=== PATIENT | female | born 1975 | race Caucasian/White ===

== ENCOUNTER 2022-06-01 15:44 | Inpatient (IN) | payer OTHER ==
[~2022-06-01] VITALS: Ht 162.6 cm; Wt 76.4 kg
[2022-06-01] MEDS ORDERED: iohexoL 350 mgI/mL, 100 ML INFUS..BTL IV ONE (16:36)
[2022-06-01 16:55] LABS: BASOPHILS % (AUTO) 0.4 % (0.0-2.0); EOSINOPHILS # (AUTO) 0.3 K/uL (0.0-0.4); EOSINOPHILS % (AUTO) 5.7 % (0.0-4.0); HEMATOCRIT 39.4 % (36-48); HEMOGLOBIN 13.6 g/dL (12.0-16.0); LYMPHOCYTES % (AUTO) 39.4 % (20.5-51.5); MEAN CORPUSCULAR HEMOGLOBIN 31 pg (27-31); MEAN CORPUSCULAR HGB CONC 34 % (32-36); MEAN CORPUSCULAR VOLUME 91 fL (79.0-98.0); MONOCYTES # (AUTO) 0.5 K/uL (0.0-1.0); MONOCYTES % (AUTO) 9.9 % (1.7-9.3); NEUTROPHILS # (AUTO) 2.3 K/uL (1.8-7.7); NEUTROPHILS % (AUTO) 44.6 % (40.0-70.0); PLATELET COUNT (AUTO) 224 K/uL (130-430); RED BLOOD CELL COUNT(AUTO) 4.33 MIL/uL (4.2-6.2); WHITE BLOOD COUNT (AUTO) 5.1 K/uL (4.8-10.8)
--- NOTE | 2022-06-01 17:00 | NUR ---
Patient to ER bed 3 to gown for evaluation. Side rails up. Report given to SIRISHA.
[2022-06-01 17:09] LABS: ANION GAP 7 (5-15); CALCIUM 8.9 mg/dL (8.4-11.0); CHLORIDE 105 mmol/L (98-107); CREATININE 0.98 mg/dL (0.55-1.30); GLUCOSE 100 mg/dL (70-99); UREA NITROGEN, BLOOD 17 mg/dL (8-21)
[2022-06-01 17:11] LABS: GFR AFRICAN AMERICAN 78 mL/min (>90)
[2022-06-01 17:18] LABS: ALANINE AMINOTRANSFERASE 22 U/L (12-78); ALBUMIN 3.9 g/dL (3.4-4.8); ASPARTATE AMINOTRANSFERASE 16 U/L (10-37); TOTAL BILIRUBIN 0.2 mg/dL (0.0-1.0)
[2022-06-01 17:25] VITALS: BP_SYST 129
--- NOTE | 2022-06-01 18:02 | NUR ---
RETURNED FROM CT. AMBULATORY
--- NOTE | 2022-06-01 19:10 | NUR ---
REPORT GIVEN TO VERNON ORTIZ. PT STATES FAMILY HISTORY OF TWIN BROTHER. STATES DAD OF CEREBRAL ANUERYSM AT AGE 31. MOM HAD BREAST CA. MULTIPLE FAMILY MEMBERS HAVE HTN.
--- NOTE | 2022-06-01 19:25 | NUR ---
RECEIVED IN BED AAO X4 , SPEECH CLEAR AND COHERENT, BP118/71. HR 78, RR18, TEMP 97.9, O2SAT 99% ON RA. PATIENT STABLE, WILL CONTINUE TO MONITOR
--- NOTE | 2022-06-01 19:28 | NUR ---
ER at bedside examining patient.
[2022-06-01] MEDS ORDERED: ASPIRIN 81 MG TABLET(ECOTRIN) PO ONE (20:15)
--- NOTE | 2022-06-01 20:45 | NUR ---
Admit bed requested Patient will be admitted to care of . Admitted to TELE unit. Diagnosis R/O CVA Inpatient (Yes or No) YES Observation (Yes or No) YES Orientation concerns or request close to nursing station (Yes or No) Covid Status On vent or bipap Isolation requirements Needs a sitter From Home Yes Requires Dialysis No Med Rec Completed Yes
--- NOTE | 2022-06-01 22:28 | NUR ---
ADMISSION NOTE Received patient from ER via gurney. Patient admitted with diagnosis of R/O CVA. Patient is awake, alert, oriented X 4. Patient oriented to hospital room, call light, toileting, pain management and safety-teach back done. Patient informed that their room number is 128b. Personal belongings checked and Belongings List documented. Call light within reach.
[2022-06-01 22:29] VITALS: BP_SYST 116
[2022-06-01 22:30] VITALS: BP_SYST 116
--- NOTE | 2022-06-01 22:30 | NUR ---
ADMISSION NOTE Received patient from ER via gurney. Patient admitted with diagnosis of r/o CVA. Patient is awake, alert, oriented X 4. Patient oriented to hospital room, call light, toileting, pain management and safety-teach back done. Patient informed that I (Sujata) will be her nurse and that their room number is 128-B. Personal belongings checked and Belongings List documented. Call light within reach. -Pt is a/ox4. Pt denies any chest pain,pain,sob,or any acute distress. IV site of RAC saline thony patent, no ss/ any infiltration noted. Pt doesn't have any deficit. Speech is clear, no facial drooping noted. Pt denies any tingling or numbness this time. Pt passed swallow evaluation w/o any difficulty. Pt is able to ambulate to bathroom with steady gaits w/o any difficulty. Discussed poc, all safety measures, or if experiencing chest pain,numbness, or tingling or any acute distress to use call light for assistance, pt verbalized understanding. Call light w/in reach. Pt refused wilman SCD and Lipitor after explained risks and benefits, pt verbalized that she can walk fine and no problem with her cholesterol. Cont to monitor pt.
--- NOTE | 2022-06-01 22:36 | NUR ---
PATIENT ADMITTED TO [id number], PATIENT STABLE
--- NOTE | 2022-06-02 00:27 | NUR ---
CONSULTATION PAGED/CALLED Reason for Consultation: R/O CVA Person Who was Notified: DR BAEZ VIA TEXT Consulting Physician: DR BAEZ Ore Fielder Specialty: Ordering Physician: CECILLE
--- NOTE | 2022-06-02 01:45 | NUR ---
ROUNDS; -Pt is asleep in bed comfortably. NO s/s any acute distress noted. Bed alarmed, side rails x3, call light w/in reach. Cont to monitor pt.
[2022-06-02 03:09] VITALS: BP_SYST 108
--- NOTE | 2022-06-02 03:09 | NUR ---
ROUNDS; -Pt awkes when entering her room. Pt is laying in bed comfortably. Pt denies any chest pain,pain,sob,or any acute distress. Pt denies any tingling and numbness. No deficit noted. Bed alarmed, side rails x3, call light w/in reach. Cont to monitor pt.
--- NOTE | 2022-06-02 06:25 | NUR ---
CLOSING NOTES; -Pt is laying in bed comfortably. Pt denies any chest pain,pain,sob,or any acute distress. Pt denies any tingling and numbness. No deficit noted. Bed alarmed, side rails x3, call light w/in reach. Will endorse to next nurse to cont care.
[2022-06-02 08:25] VITALS: BP_SYST 111
--- NOTE | 2022-06-02 08:25 | NUR ---
INITIAL ROUNDS Received pt AAOx4, neuro checks and NIH complete and intact, no s/s resp distress, no c/o pain or discomfort. Plan of care for the day reviewed with pt-pt verbalized her understanding and hopes to be discharged home today. Pain management, disease process, skin and safety discussed-teach back done. Pt given fresh ice water. Call light within reach.
[2022-06-02] MEDS ORDERED: ASPIRIN 81 MG TABLET(ECOTRIN) PO ONE (09:00)
[2022-06-02 13:41] VITALS: BP_SYST 112
--- NOTE | 2022-06-02 15:04 | NUR ---
Pt seen by Dr. Mckeon, new orders given for MRI and labs. Dr. Mckeon stated the pt should have an MRI before discharged home and that if pt wants to leave before MRI than pt can leave against medical advise. Addendum: 06/02/22 at 1522 by Radha Dasilva RN Or follow up as an outpatient.
[2022-06-02 15:21] LABS: CHOLESTEROL 190 mg/dL (<200); HDL CHOLESTEROL 74 mg/dL (>55); LDL CHOLESTEROL 110 mg/dL (<100); TRIGLYCERIDES 70 mg/dL (30-150)
[2022-06-02 17:05] VITALS: BP_SYST 112
--- NOTE | 2022-06-02 17:50 | NUR ---
PATIENT DISCHARGED HOME Patient given medication reconciliation form and D/C instructions. Exit Care on TIA explained and provided. Patient verbalized her understanding. MD discussed with patient the results and treatment provided. Patient educated to follow up with DR. Mckeon Neurology for outpatient MRI. Ambulatory with steady gait for discharge to home. Patient in stable condition, ID band removed. IV catheter removed, intact and dressing applied, no active bleeding. Patient educated on pain management. All belongings sent with patient. Patient left floor via wheelchair to private vehicle in no distress.
[2022-06-02] MEDS ORDERED: ATORVASTATIN 20 MG TABLET PO SCH (21:00)
== END 2022-06-02 17:50 | disposition home or self-care (01) | DRG 69 ==
LOC: SED 15:44 → STU 20:30
PROVIDERS: ADMIT Family Medicine; ATTEND Family Medicine
DX: G45.9 Transient cerebral ischemic attack, unspecified (principal); Z20.822 Contact with and (suspected) exposure to COVID-19
CPT/HCPCS: 36415; 70450-TC; 70496; 70498; 76376; 80053; 80061; 84484; 85025; 93005; 99285; G0378; Q9967